=== PATIENT | female | born 1995 | race Caucasian/White ===

== ENCOUNTER 2019-03-05 11:54 | Emergency (ER) | payer BC, SELFPAY ==
[2019-03-05 11:58] VITALS: BP 132/81; PULSE 76; RESP 14; TEMP 36.7; O2SAT 100
--- NOTE | 2019-03-05 12:13 | ED.GENADUL_ITS ---
Discharge Plan Disposition Patient Disposition: HOME Condition: Good Discharge Details Chief Complaint: Urinary Clinical Impression: Acute UTI Primary Care Provider: None,None ED Provider: Arsh Tierney Home Meds and New Rx's Prescriptions: New cephalexin [Keflex] 500 mg capsule 500 mg PO BID 5 Days Qty: 10 RF: 0 phenazopyridine [Pyridium] 200 mg tablet 200 mg PO TID PRN (Reason: pain) Qty: 5 RF: 0 Discharge Instructions Instructions: Urinary Tract Infection in Women (ED) Referrals: Primary Care Provider [Outside] (As needed for reassessment) Discharge Data Discharge Date/Time-TO BE ENTERED AT DEPARTURE: 03/05/19 13:22 Medical Decision Making Patient presenting the emergency department for chief complaint of burning with urination and mild suprapubic pain. Patient states that discomfort started yesterday with urinary urgency and frequency. Patient denies any flank pain, vomiting, fever or chills. Physical exam shows mild suprapubic tenderness otherwise unremarkable exam. Suspect UTI which patient states is similar symptoms in the past with previous UTIs. Patient denies any chance of . Pending urinalysis results patient given Pyridium. Review of urinalysis shows small amount of blood and moderate amount of leukocyte esterase, and significant WBCs Patient started on Keflex twice daily and also prescribed Pyridium for discomfort. Return precautions discussed. HPI General Mode of arrival: ambulatory . Date/Time Provider Initiated Documentation: 03/05/19 11:55 . Limitations to Documentation: no limitations . Information obtained by: patient and RN notes reviewed . History of Present Illness 23 year old F presents to the emergency department with the chief complaint of UTI, described as moderate and similar to prior episodes, with intensity rated at 7. Quality is described as burning (with urination), Patient started experiencing this day(s) (1) and it has been constant. No relieving factors improve symptom(s), No exacerbating factors reported . Patient did receive the following treatments prior to arrival, none Related Data Home Medications Medication Instructions Recorded Confirmed cephalexin [Keflex] 500 mg PO BID 5 Days #10 cap 03/05/19 phenazopyridine [Pyridium] 200 mg PO TID PRN #5 tab 03/05/19 Previous Rx's Medication Instructions Recorded cephalexin [Keflex] 500 mg PO BID 5 Days #10 cap 03/05/19 phenazopyridine [Pyridium] 200 mg PO TID PRN #5 tab 03/05/19 Allergies Allergy/AdvReac Type Severity Reaction Status Date / Time bee venom protein (honey bee) Allergy Unverified 03/05/19 12:02 General Stated Complaint: Urinary ADA: 3 Review of Systems Constitutional Denies fever(s) Gastrointestinal Reports abdominal pain (Suprapubic), Reports nausea and Denies vomiting Genitourinary Reports as per HPI, Denies hematuria, Reports urinary frequency, Reports dysuria, Denies flank pain and Reports urinary urgency PFSH Social History Smoking/Tobacco Use Status: Never Drug use: Never Substance use type: does not use Do you feel safe at home: Yes Do you feel safe in your relationship?: Yes Exam Const General: cooperative and no acute distress Orientation: alert, awake and oriented x3 Resp Effort & Inspection: normal respiratory effort and able to speak in complete sentences Back/Spine/Pelvis Back: no CVA tenderness Neuro General: alert, awake and oriented x3 Extrem General: normal capillary refill Course Vital Signs Temperature 36.7 C 03/05/19 11:58 Pulse 76 03/05/19 11:58 Respiratory Rate 14 03/05/19 11:58 Blood Pressure 132/81 03/05/19 11:58 Pulse Oximetry 100 03/05/19 11:58 Temperature 36.7 C 03/05/19 11:58 Temperature Source Temporal Artery Scan 03/05/19 11:58 Pulse 76 03/05/19 11:58 Respiratory Rate 14 03/05/19 11:58 Respiratory Effort Non-Labored 03/05/19 12:00 Blood Pressure 132/81 03/05/19 11:58 Blood Pressure Position Sitting 03/05/19 11:58 Pulse Oximetry 100 03/05/19 11:58 Oxygen Delivery Method Room Air 03/05/19 11:58 Oxygen Flow Rate 0 03/05/19 11:58 Pain Level 7 03/05/19 12:01
[2019-03-05 12:15] LABS: Bilirubin Negative (Negative); Blood Small (Negative); Clarity Clear; Glucose Negative (Negative); Ketones Negative (Negative); Leukocyte Esterase Moderate (Negative); Nitrite Negative (Negative); Urobilinogen 0.2 EU/dL (Up TO 0.2)
[2019-03-05 12:28] LABS: Epithelial Cells Few HPF (Negative); RBC 0-2 (0-2); WBC >50 HPF (0-5)
[2019-03-05 12:29] LABS: Bacteria Few HPF (Negative); C & S Indicated? Yes; Casts Negative LPF (Negative); Crystals Negative HPF (Negative); Mucus Negative (Negative); Other Cells Rare Renal (Negative)
== END 2019-03-05 13:22 | disposition home or self-care (01) ==
PROVIDERS: Emergency Provider Nurse Practitioner Family
DX: N39.0 Urinary tract infection, site not specified (principal)
CPT/HCPCS: 87077; 99283; 81003; 81015; 87086; 87186